=== PATIENT | male | born 1945 | race Caucasian/White ===

== ENCOUNTER 2017-12-29 08:15 | Day surgery (SDC) | payer OTHER ==
[~2017-12-29 08:15] MED LIST: ATORVASTATIN CA20 MG PO; FORTAMET1000 MG PO; LOSARTAN-HCTZ1 EACH PO; VITAMIN D5000 UNIT PO; [UNRECOGNIZED DRUG - OTHER] PO
== END 2017-12-29 17:45 | disposition home or self-care (01) ==
LOC: CIR.AMB 08:15
DX: G56.01 Carpal tunnel syndrome, right upper limb (principal)